=== PATIENT | female | born 1995 | race Caucasian/White ===

== ENCOUNTER 2016-11-20 19:47 | Emergency (ER) | payer BC ==
[2016-11-20 20:33] VITALS: BP 120/62
--- NOTE | 2016-11-20 20:39 | UC ---
Throat Pain/Nasal Steve HPI - HPI Summary HPI Summary: This is an otherwise healthy 21 yo female with c/o ST. Symptoms have been persistent for ~3d. She reports some cough, fatigue and body aches. She has felt feverish, but no documented fever. No associated n/v/d. Denies close sick contacts. - History of Current Complaint Chief Complaint: UCGeneralIllness Stated Complaint: SORE THROAT,FEVER Hx Last Menstrual Period: 11/13/16 - Allergies/Home Medications Allergies/Adverse Reactions: Allergies Allergy/AdvReac Type Severity Reaction Status Date / Time Sulfamethoxazole Allergy Hives Verified 11/20/16 20:02 w/Trimethoprim [From Bactrim] Home Medications: Home Medications Acetaminophen TAB* [Tylenol TAB*] 650 mg PO Q4H PRN 11/20/16 [History Confirmed 11/20/16] Ibuprofen TAB* [Advil TAB*] 400 mg PO Q6H PRN 11/20/16 [History Confirmed ] PMH/Surg Hx/FS Hx/Imm Hx - Surgical History Surgical History: Yes Surgery Procedure, Year, and Place: Left Ankle Surgery. Right Foot Surgery. T& A - Family History Known Family History: Positive: Cardiac Disease, Hypertension, Diabetes - Social History Alcohol Use: None Substance Use Type: None Smoking Status (MU): Never Smoked Tobacco Have You Smoked in the Last Year: No - Immunization History Most Recent Influenza Vaccination: [id number] Vaccination Up to Date: Yes Review of Systems Constitutional: Fever, Chills, Fatigue Skin: Negative Eyes: Negative ENT: Negative Respiratory: Negative Cardiovascular: Negative Gastrointestinal: Negative Genitourinary: Negative Motor: Negative Neurovascular: Negative Musculoskeletal: Negative Neurological: Negative Psychological: Negative All Other Systems Reviewed And Are Negative: Yes Physical Exam Triage Information Reviewed: Yes Vital Signs: Initial Vital Signs Temp 99.2 F 11/20/16 20:04 Pulse 77 11/20/16 20:04 Resp 16 11/20/16 20:04 BP 120/62 11/20/16 20:04 Pulse Ox 100 11/20/16 20:04 Vital Signs Reviewed: Yes ENT Exam: Normal ENT: Positive: Normal ENT inspection Neck: Positive: Enlarged Nodes @ - cervical, mild Respiratory: Positive: Chest non-tender, Lungs clear, Normal breath sounds Cardiovascular: Positive: RRR, No Murmur Abdomen Description: Positive: Nontender Diagnostics - Laboratory Diagnostic Studies Completed/Ordered: Rapid strep - neg Throat Pain/Nasal Course/Dx - Course Course Of Treatment: This is an otherwise healthy 21 yo female with a 3d h/o fever, chills, ST and HERNANDEZ. Her rapid strep is neg and exam benign. This likely represents a viral syndrome and recommended symptomatic care. - Differential Dx/Diagnosis Differential Diagnosis/HQI/PQRI: Laryngitis, Pharyngitis, Sinusitis Provider Diagnoses: 1. Viral pharyngitis Discharge - Discharge Plan Condition: Stable Disposition: HOME Patient Education Materials: Viral Syndrome (ED) Forms: *Work Release Referrals: Cammie MEEKS,Rama [Medical Doctor] - Additional Instructions: Activity: As tolerated Instructions: 1. Take ibuprofen for pain/swelling (600-800 mg three times daily) 2. Get plenty of rest
== END 2016-11-20 20:41 | disposition home or self-care (01) ==
LOC: UCCORT 19:47
DX: J02.8 Acute pharyngitis due to other specified organisms (principal); Z88.1 Allergy status to other antibiotic agents
CPT/HCPCS: 87651; 99211; G0463

== ENCOUNTER 2017-05-23 11:42 | Emergency (ER) | payer BC ==
[2017-05-23 12:02] VITALS: BP 118/67
--- NOTE | 2017-05-23 12:38 | RAD ---
Indication: Hemoptysis and cough. 2 views of the chest including dual energy PA views demonstrate no mediastinal shift. Heart is of normal size and configuration. Lung white are clear. When compared to previous exam of October 16, 2014 no significant change is noted. IMPRESSION: No active cardiopulmonary disease is noted.
--- NOTE | 2017-05-23 12:43 | UC ---
Respiratory Complaint HPI - HPI Summary HPI Summary: Pt c/o productive cough, that is occasional blood streaked with small amount of bright red blood,in sputum X 1 week. - History of Current Complaint Chief Complaint: UCGeneralIllness Stated Complaint: COUGH CONGESTION Time Seen by Provider: 05/23/17 12:06 Hx Obtained From: Patient Hx Last Menstrual Period: 05/16/17 ?: No Onset/Duration: Gradual Onset, Lasting Weeks - 1, Still Present Timing: Constant Severity Initially: Mild Severity Currently: Mild Character: Cough: Productive Aggravating Factors: Deep Breaths, Recumbent Position Alleviating Factors: Nothing Associated Signs And Symptoms: Positive: Hemoptysis, Nasal Congestion - Risk Factors Pulmonary Embolism Risk Factors: Oral Contraceptives - Allergies/Home Medications Allergies/Adverse Reactions: Allergies Allergy/AdvReac Type Severity Reaction Status Date / Time Sulfamethoxazole Allergy Hives Verified 05/23/17 12:02 w/Trimethoprim [From Bactrim] PMH/Surg Hx/FS Hx/Imm Hx Previously Healthy: Yes - Surgical History Surgical History: Yes Surgery Procedure, Year, and Place: Left Ankle Surgery. Right Foot Surgery. T& A. ovarian cyst removed - Family History Known Family History: Positive: Cardiac Disease, Hypertension, Diabetes - Social History Occupation: Student Lives: Dormitory/Roommates Alcohol Use: None Substance Use Type: None Smoking Status (MU): Never Smoked Tobacco Have You Smoked in the Last Year: No - Immunization History Most Recent Influenza Vaccination: current 2016/2017 Vaccination Up to Date: Yes Review of Systems Constitutional: Negative Skin: Negative Eyes: Negative Respiratory: Cough Cardiovascular: Negative Gastrointestinal: Negative Genitourinary: Negative Motor: Negative Neurovascular: Negative Musculoskeletal: Negative Neurological: Negative Psychological: Negative Is Patient Immunocompromised?: No All Other Systems Reviewed And Are Negative: Yes Physical Exam Triage Information Reviewed: Yes Appearance: Well-Appearing Vital Signs: Initial Vital Signs Temp 98.1 F 05/23/17 11:57 Pulse 83 05/23/17 11:57 Resp 18 05/23/17 11:57 BP 118/67 05/23/17 11:57 Pulse Ox 100 05/23/17 11:57 Vital Signs Reviewed: Yes Eye Exam: Normal ENT Exam: Normal Dental Exam: Normal Neck exam: Normal Respiratory Exam: Normal Cardiovascular Exam: Normal Musculoskeletal Exam: Normal Neurological Exam: Normal Psychological Exam: Normal Skin Exam: Normal UC Diagnostic Evaluation - Laboratory O2 Sat by Pulse Oximetry: 100 Respiratory Course/Dx - Differential Dx/Diagnosis Differential Diagnosis/HQI/PQRI: Bronchitis, Pulmonary Embolism, Other - pneumonia Provider Diagnoses: bronchitis Discharge - Discharge Plan Condition: Stable Disposition: HOME Prescriptions: Azithromycin TAB* [Zithromax TAB (Z-GISELLE) 250 mg #6 tabs] 2 tab PO .TODAY, THEN 1 DAILY #1 giselle Benzonatate CAP* [Tessalon 100 MG CAP*] 100 mg PO Q8H PRN #21 cap PRN Reason: Cough predniSONE TAB* [Deltasone TAB*] 30 mg PO DAILY #12 tab Patient Education Materials: Acute Bronchitis (ED) Referrals: No Primary Care Phys,NOPCP [Primary Care Provider] - If Needed
== END 2017-05-23 12:53 | disposition home or self-care (01) ==
LOC: UCCORT 11:42
DX: J40 Bronchitis, not specified as acute or chronic (principal); Z88.2 Allergy status to sulfonamides
CPT/HCPCS: 71046; 99212; G0463

== ENCOUNTER 2018-12-25 13:35 | Emergency (ER) | payer BC ==
[2018-12-25 14:03] VITALS: BP 111/58
--- NOTE | 2018-12-25 14:10 | UC ---
Ear Complaint HPI - HPI Summary HPI Summary: 23-year-old female with a right earache. She has been swimming recently. - History of Current Complaint Chief Complaint: UCEar Stated Complaint: RIGHT EAR Time Seen by Provider: 12/25/18 13:56 Hx Obtained From: Patient Hx Last Menstrual Period: 05/16/17 ?: No Onset/Duration: Gradual Onset Severity Initially: Mild Severity Currently: Moderate Pain Intensity: 6 Aggravating Factors: Nothing Alleviating Factors: Nothing - Allergies/Home Medications Allergies/Adverse Reactions: Allergies Allergy/AdvReac Type Severity Reaction Status Date / Time sulfamethoxazole Allergy Hives Verified 12/25/18 14:03 [From Bactrim] trimethoprim [From Bactrim] Allergy Hives Verified 12/25/18 14:03 Home Medications: Home Medications Sertraline* [Zoloft*] 50 mg PO DAILY 12/25/18 [History Confirmed 12/25/18] PMH/Surg Hx/FS Hx/Imm Hx Previously Healthy: Yes - Surgical History Surgical History: Yes Surgery Procedure, Year, and Place: Left Ankle Surgery. Right Foot Surgery. T& A. ovarian cyst removed - Family History Known Family History: Positive: Cardiac Disease, Hypertension, Diabetes - Social History Alcohol Use: None Substance Use Type: None Smoking Status (MU): Never Smoked Tobacco Have You Smoked in the Last Year: No - Immunization History Most Recent Influenza Vaccination: current 2016/2017 Vaccination Up to Date: Yes Review of Systems All Other Systems Reviewed And Are Negative: Yes ENT: Positive: Ear Ache Is Patient Immunocompromised?: No Physical Exam Triage Information Reviewed: Yes Appearance: Well-Appearing, No Pain Distress, Well-Nourished Vital Signs: Initial Vital Signs Temp 98.3 F 12/25/18 13:58 Pulse 78 12/25/18 13:58 Resp 18 12/25/18 13:58 BP 111/58 12/25/18 13:58 Pulse Ox 100 12/25/18 13:58 Vital Signs Reviewed: Yes Eyes: Positive: Conjunctiva Clear ENT: Positive: Pharynx normal, TM red - Right tragus is tender on palpation, ear is not tender with manipulation, ear canal is erythematous mildly swollen with yellowish green discharge in the canal I'm unable to visualize tympanic membrane. Left tympanic [place] pearly-waters with good land p[place] and light reflex., Uvula midline Neck: Positive: Supple, Nontender, No Lymphadenopathy Respiratory: Positive: Lungs clear, Normal breath sounds, No respiratory distress, No accessory muscle use Cardiovascular: Positive: RRR, No Murmur, Pulses Normal, Brisk Capillary Refill Musculoskeletal Exam: Normal Neurological Exam: Normal Psychological Exam: Normal Skin Exam: Normal Ear Complaint Course/Dx - Course Course Of Treatment: Patient is comfortable here. I'm going to treated for an otitis externa as well as an otitis media on the right side. - Differential Dx/Diagnosis Provider Diagnosis: Right otitis externa, Right otitis media Discharge - Sign-Out/Discharge Documenting (check all that apply): Patient Departure All imaging exams completed and their final reports reviewed: No Studies - Discharge Plan Condition: Fair Disposition: HOME Prescriptions: Amoxicillin PO (*) [Amoxicillin 875 MG (*)] 875 mg PO BID 10 Days #20 tab Neomyc/Polym/HC 1% OTIC SUSP* [Cortisporin Otic Susp 1%*] 4 drop RIGHT EAR QID # 1 btl Patient Education Materials: Ear Infection (ED), Otitis Externa (DC) Referrals: Joy Saxena PA [Primary Care Provider] - Additional Instructions: Keep ear ears clean and dry, no swimming over the next week, Tylenol or Motrin for pain as directed. Follow-up with your primary care provider if no improvement in 3 or 4 days. - Billing Disposition and Condition Condition: FAIR Disposition: Home
== END 2018-12-25 14:17 | disposition home or self-care (01) ==
LOC: UCCORT 13:35
DX: H60.91 Unspecified otitis externa, right ear (principal); H66.91 Otitis media, unspecified, right ear; Z88.2 Allergy status to sulfonamides
CPT/HCPCS: 99212; G0463

== ENCOUNTER 2019-02-28 18:40 | Emergency (ER) | payer BC ==
[2019-02-28 18:58] VITALS: BP 115/66
[2019-02-28] MEDS ORDERED: Lidocaine 1% MPF* 2 ML VIAL INJ ONE (19:16)
--- NOTE | 2019-02-28 19:17 | UC ---
Skin Complaint HPI - HPI Summary HPI Summary: Laceration on nose about an hour ago. Dogs were wrestling, not sure if a tooth or a toe nail got her. Washed with hot water and bled for awhile, just stopped bleeding. Dogs up to date on rabies. - History of Current Complaint Chief Complaint: UCWounds Time Seen by Provider: 02/28/19 19:07 Stated Complaint: LACERATION NOSE Hx Last Menstrual Period: 05/16/17 Pain Intensity: 1 - Allergy/Home Medications Allergies/Adverse Reactions: Allergies Allergy/AdvReac Type Severity Reaction Status Date / Time sulfamethoxazole Allergy Hives Verified 02/28/19 18:58 [From Bactrim] trimethoprim [From Bactrim] Allergy Hives Verified 02/28/19 18:58 PMH/Surg Hx/FS Hx/Imm Hx - Surgical History Surgical History: Yes Surgery Procedure, Year, and Place: Left Ankle Surgery. Right Foot Surgery. T& A. ovarian cyst removed - Family History Known Family History: Positive: Cardiac Disease, Hypertension, Diabetes - Social History Alcohol Use: Occasionally Substance Use Type: None Smoking Status (MU): Never Smoked Tobacco Have You Smoked in the Last Year: No - Immunization History Most Recent Influenza Vaccination: current 2016/2017 Most Recent Tetanus Shot: Pt ivan she is up to date Vaccination Up to Date: Yes Physical Exam Vital Signs: Initial Vital Signs Temp 99.2 F 02/28/19 18:53 Pulse 78 02/28/19 18:53 Resp 16 02/28/19 18:53 BP 115/66 02/28/19 18:53 Pulse Ox 100 02/28/19 18:53 Discharge ED - Discharge Plan Referrals: Joy Saxena PA [Primary Care Provider] -
[2019-02-28] MEDS ORDERED: Amoxicillin/Clavulanate TAB* 875 MG PO ONE (19:21)
--- NOTE | 2019-02-28 19:21 | UC ---
Laceration HPI - HPI Summary HPI Summary: Laceration on nose about an hour ago. Dogs were wrestling, not sure if a tooth or a toe nail got her. Washed with hot water and bled for awhile, just stopped bleeding. Dogs up to date on rabies. she is UTD on tetanus - History Of Current Complaint Chief Complaint: UCWounds Stated Complaint: LACERATION NOSE Time Seen by Provider: 02/28/19 19:07 Hx Obtained From: Patient Hx Last Menstrual Period: 05/16/17 Laceration Location: Face Mechanism Of Injury: Sharp Trauma Onset/Duration: Sudden Onset, Lasting Hours Severity: Mild Pain Intensity: 1 - Allergies/Home Medications Allergies/Adverse Reactions: Allergies Allergy/AdvReac Type Severity Reaction Status Date / Time sulfamethoxazole Allergy Hives Verified 02/28/19 18:58 [From Bactrim] trimethoprim [From Bactrim] Allergy Hives Verified 02/28/19 18:58 PMH/Surg Hx/FS Hx/Imm Hx Previously Healthy: Yes - Surgical History Surgical History: Yes Surgery Procedure, Year, and Place: Left Ankle Surgery. Right Foot Surgery. T& A. ovarian cyst removed - Family History Known Family History: Positive: Cardiac Disease, Hypertension, Diabetes - Social History Alcohol Use: Occasionally Substance Use Type: None Smoking Status (MU): Never Smoked Tobacco Have You Smoked in the Last Year: No - Immunization History Most Recent Influenza Vaccination: current 2016/2017 Most Recent Tetanus Shot: Pt beleives she is up to date Vaccination Up to Date: Yes Review of Systems All Other Systems Reviewed And Are Negative: Yes Skin: Positive: Other - laceration to right nare and lower cartilage Is Patient Immunocompromised?: No Physical Exam Triage Information Reviewed: Yes Appearance: Well-Appearing, Well-Nourished, Pain Distress Vital Signs: Initial Vital Signs Temp 99.2 F 02/28/19 18:53 Pulse 78 02/28/19 18:53 Resp 16 02/28/19 18:53 BP 115/66 02/28/19 18:53 Pulse Ox 100 02/28/19 18:53 Vital Signs Reviewed: Yes Eye Exam: Normal ENT Exam: Normal Dental Exam: Normal Neck exam: Normal Respiratory Exam: Normal Cardiovascular Exam: Normal Abdominal Exam: Normal Bowel Sounds: Positive: Present Musculoskeletal Exam: Normal Neurological Exam: Normal Psychological Exam: Normal Skin: Positive: Other - full thickness laceration to the skin and cartilage of the right nare Laceration Course/Dx - Course/Dx Course Of Treatment: hx obtained, exam performed ,meds reviewed, discussed with Dr jordan who will perform the laceration repair. treated with antibiotics for prevention of infection - Differential Dx - Laceration/Wound Differental Diagnoses: Laceration - Diagnosis Provider Diagnosis: Laceration of nose, complex Discharge ED - Sign-Out/Discharge Documenting (check all that apply): Patient Departure All imaging exams completed and their final reports reviewed: No Studies - Discharge Plan Condition: Stable Disposition: HOME Prescriptions: Amoxicillin/Clavulanate TAB* [Augmentin TAB 875*] 875 mg PO BID #19 tab Patient Education Materials: Laceration (DC) Referrals: Joy Saxena PA [Primary Care Provider] - Additional Instructions: 1. return in 4-5 days to have the sutures removed. 2. Take the medication as prescribed. - Billing Disposition and Condition Condition: STABLE Disposition: Home
--- NOTE | 2019-02-28 19:56 | UC ---
- Progress Note Progress Note: Faith Martinez was prepped and draped in the usual fashion. She was anesthetized with almost 2 cc's of 1% lidocaine. The wound was cleansed with hibiclens and closed with #8 6.0 Nylon simple interrupted sutures. She tolerated it well and it was dressed with antibiotic ointment. The wound edges were sharp and approximated well. Course/Dx - Diagnoses Provider Diagnoses: Laceration of nose, complex Discharge ED - Sign-Out/Discharge Documenting (check all that apply): Patient Departure All imaging exams completed and their final reports reviewed: No Studies - Discharge Plan Condition: Stable Disposition: HOME Prescriptions: Amoxicillin/Clavulanate TAB* [Augmentin TAB 875*] 875 mg PO BID #19 tab Referrals: Joy Saxena PA [Primary Care Provider] - - Billing Disposition and Condition Condition: STABLE Disposition: Home
== END 2019-02-28 20:07 | disposition home or self-care (01) ==
LOC: UCCORT 18:40
DX: S01.21XA Laceration without foreign body of nose, initial encounter (principal); Z88.2 Allergy status to sulfonamides; X58.XXXA Exposure to other specified factors, initial encounter; Y92.9 Unspecified place or not applicable
CPT/HCPCS: 12011; 99212; A9270-GY; G0463

== ENCOUNTER 2019-03-05 16:32 | Emergency (ER) | payer BC ==
[2019-03-05 17:10] VITALS: BP 113/68
--- NOTE | 2019-03-05 17:10 | UC ---
HPI Wound/Suture Re-check - HPI Summary HPI Summary: 23 y/o female presents to the urgent care requesting suture removal from her nose. Pt states sutures were placed here on 05/31/2018 s/p her dog bit her nose accidentally. Pt states wound has healed well and she is happy in how her wound has improved. Pt denies pain, fever, SOB, chest pain, abdominal pain, N/V/ d. - History Of Current Complaint Stated Complaint: REMOVAL OF STITCHES Time Seen by Provider: 03/05/19 17:09 Hx Obtained From: Patient Hx Last Menstrual Period: 05/16/17 Onset/Duration: Sudden Onset, Resolved Severity: Mild Pain Intensity: 0 Pain Scale Used: 0-10 Numeric Surgery Date: 02/28/19 - nose laceration repair - Allergies/Home Medications Allergies/Adverse Reactions: Allergies Allergy/AdvReac Type Severity Reaction Status Date / Time sulfamethoxazole Allergy Hives Verified 03/05/19 17:10 [From Bactrim] trimethoprim [From Bactrim] Allergy Hives Verified 03/05/19 17:10 PMH/Surg Hx/FS Hx/Imm Hx Previously Healthy: Yes - Pt denies PMHX - Surgical History Surgical History: Yes Surgery Procedure, Year, and Place: Left Ankle Surgery. Right Foot Surgery. T& A. ovarian cyst removed - Family History Known Family History: Positive: Cardiac Disease, Hypertension, Diabetes - Social History Occupation: Employed Full-time Lives: With Family Alcohol Use: Occasionally Substance Use Type: None Smoking Status (MU): Never Smoked Tobacco Have You Smoked in the Last Year: No - Immunization History Most Recent Influenza Vaccination: current 2016/2017 Most Recent Tetanus Shot: Pt ivan she is up to date Vaccination Up to Date: Yes Review of Systems All Other Systems Reviewed And Are Negative: Yes Constitutional: Positive: Negative Skin: Positive: Other - wound healing well s/p laceration repair Eyes: Positive: Negative ENT: Positive: Negative Respiratory: Positive: Negative Cardiovascular: Positive: Negative Gastrointestinal: Positive: Negative Motor: Positive: Negative Neurovascular: Positive: Negative Musculoskeletal: Positive: Negative Neurological: Positive: Negative Psychological: Positive: Negative Is Patient Immunocompromised?: No Physical Exam Triage Information Reviewed: Yes Appearance: Well-Appearing, No Pain Distress Vital Signs Reviewed: Yes Eye Exam: Normal ENT Exam: Normal Dental Exam: Normal Neck exam: Normal Respiratory Exam: Normal Cardiovascular Exam: Normal Abdominal Exam: Normal Bowel Sounds: Positive: Present Musculoskeletal Exam: Normal Neurological Exam: Normal Psychological Exam: Normal Skin: Positive: Other - Wound healing well on the right side and tip of nose with crusting and moderate granulation over, non tender to palpation, [address] 8 sutures removed w/o any difficulty. Course/Dx - Course Course Of Treatment: 23 y/o female presents to the urgent care requesting suture removal from her nose. Pt states sutures were placed here on 05/31/2018 s/p her dog bit her nose accidentally. Pt states wound has healed well and she is happy in how her wound has improved. Pt denies pain, fever, SOB, chest pain, abdominal pain, N/V/ d. Hx obtained. Wound healing well with crusting and moderate granulation over the Rt side and tip of nose, non tender to palpation, [address] 8 sutures removed w/o any difficulty. Pt tolerated well procedure. wound cleaned with sterile water and bacitracin oint applied over. Pt advised to continue taking Augmentin PO as directed and apply Bacitracin oint and if redness, pain or fever develops to return to the urgent care or f/u with PCP for further treatment. D/C instructions explained. Pt understood and agreed with plan of care - Differential Dx - Laceration/Wound Differential Diagnoses: Cellulitis, Healing Wound, Suture Removal - Diagnosis Provider Diagnosis: Visit for suture removal Discharge ED - Sign-Out/Discharge Documenting (check all that apply): Patient Departure - D/C home All imaging exams completed and their final reports reviewed: No Studies - Discharge Plan Condition: Stable Disposition: HOME Prescriptions: Bacitracin OINTMENT* 1 applic TOPICAL BID #1 tube Patient Education Materials: Acute Wound Care (ED) Referrals: Joy Saxena PA [Primary Care Provider] - Additional Instructions: 1-Keep taking Augmenting PO as directed. Please apply Bacitracin topical antibiotic over the wound. Keep wound clean and dry 2-Take Ibuprofen or Tylenol PO q6-8hrs prn for pain or swelling. Avoid sun exposure 4- If you develop fever or redness around your finger despite the antibiotic please return to the Urgent care or your PCP for further management - Billing Disposition and Condition Condition: STABLE Disposition: Home
== END 2019-03-05 17:32 | disposition home or self-care (01) ==
LOC: UCCORT 16:32
DX: T14.8XXD Other injury of unspecified body region, subsequent encounter (principal); X58.XXXD Exposure to other specified factors, subsequent encounter

== ENCOUNTER 2019-04-17 18:14 | Emergency (ER) | payer BC ==
--- OUTSIDE RECORDS SUMMARY | 2019-04-17 18:34 | XMS REPORT | Continuity of Care Document ---
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 Medicine Problems Active Problems Provider Date Anxiety MARANDA Anaya Onset: 09/30/2018 Posttraumatic stress disorder MARANDA Anaya Onset: 09/30/2018 Social History Type Date Description Comments Sex Unknown ETOH Use Denies alcohol use Tobacco Use Start: Unknown Patient has never smoked Smoking Status Reviewed: 04/09/19 Patient has never smoked Exercise Type/Frequency Walks daily Running Allergies, Adverse Reactions, Alerts Active Allergies Reaction Severity Comments Date Codeine Nausea 08/27/2018 Bactrim Itching 08/27/2018 Sulfamethoxazole Hives 08/27/2018 Trimethoprim Sulfate 08/27/2018 Medications Active Medications SIG Qnty Indications Ordering Provider Date Seasonique take daily as Trupti Garcia, directed [employer] 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 0.15-0.03&0.01mg Tablets Vitamin C 1 by mouth every Unknown 500mg day OTC Capsules Vitamin D 1 by mouth every Unknown 2000Unit day - OTC Tablets Immunizations CPT Code Status Date Vaccine Reaction Lot # [id number] Given 04/09/2019 Influ Virus Vaccine, risks and benefits Flu>3yr/ Quadrivalent, Split discussed [id number] Virus, [place] [address] Given 06/06/2016 Influenza Virus Vaccine, Quadrivalent, Split, Preservative Free 87957 Given 11/02/2014 Meningococcal Immunization 31309 Given 09/02/2013 Hepatitis A Vaccine Pediatric/Adolescent Dosage 2 Dose Schedule 56520 Given 01/02/2008 Pneumococcal Conjugate Vaccine 13 Valent For Intramuscular Use 94266 Given 11/28/2007 Varicella (Chicken Pox) Immunization 38183 Given 03/11/2007 Gardasil (HPV) 83157 Given 11/08/2006 Gardasil (HPV) 16340 Given 09/06/2006 Gardasil (HPV) 90910 Given 08/03/2006 Tdap - Tetanus/Diptheria/Acellu lar Pertussis 98594 Given 08/22/2000 IPV/Poliomyelitis Immunization 51002 Given 08/22/2000 DTaP Vaccine Younger Than 7 28420 Given 07/11/1999 Measles Mumps And Rubella MMR 92621 Given 02/05/1997 Hib Hboc Conjugate 4 Dose Schedule 39129 Given 02/05/1997 DTaP Vaccine Younger Than 7 07851 Given 10/07/1996 Varicella (Chicken Pox) Immunization 22939 Given 07/18/1996 Measles Mumps And Rubella MMR 45475 Given 01/10/1996 Hep B Pediatric/Adolescent 67757 Given 01/10/1996 IPV/Poliomyelitis Immunization 19824 Given 01/10/1996 DTaP Vaccine Younger Than 7 27523 Given 01/10/1996 Hib Hboc Conjugate 4 Dose Schedule 38590 Given 1995 Hep B Pediatric/Adolescent 23957 Given 1995 IPV/Poliomyelitis Immunization 14420 Given 1995 DTaP Vaccine Younger Than 7 77773 Given 1995 Hib Hboc Conjugate 4 Dose Schedule 65160 Given 1995 Hep B Pediatric/Adolescent 05079 Given 1995 IPV/Poliomyelitis Immunization 92993 Given 1995 DTaP Vaccine Younger Than 7 27083 Given 1995 Hib Hboc Conjugate 4 Dose Schedule Vital Signs Date Vital Result Comment 04/09/2019 2:33pm Height 62.5 inches 5'2.50" Weight 160.19 lb Heart Rate 83 /min BP Systolic 104 mmHg BP Diastolic 68 mmHg Body Temperature 98.9 F O2 % BldC Oximetry 98 % BMI (Body Mass Index) 28.8 kg/m2 Results Description No Information Available Procedures Description No Information Available Medical Devices Description No Information Available Encounters Description No Information Available Assessments Date Code Description Provider 04/09/2019 F41.9 Anxiety disorder, unspecified MARANDA Anaya 04/09/2019 Z23 Encounter for immunization MARANDA Anaya Plan of Treatment 04/09/2019 - Joy Saxena, PAF41.9 Anxiety disorder, unspecifiedComments: Situational.Z23 Encounter for immunizationComments:Seasonal flu vaccine administered today. Functional Status Description No Information Available Mental Status Description No Information Available Referrals Description No Information Available
[2019-04-17 18:42] VITALS: BP 115/70
--- NOTE | 2019-04-17 19:01 | UC ---
Abdominal Pain Female HPI - HPI Summary HPI Summary: Patient is a 23yo female presenting with c/o continuous abdominal pain and back pain x5 days. Patient states that she was seen in ED last sunday for same symptoms. 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 Patient states she is here now "for advice on anything else she can do for constipation." Patient states she was "totally constipated for days but the last two days she was able to pass very small stools." Notes almost no relief from these stool, stating she "still feels bloated and has pain." Patient notes decreased appetite but still eating; had mac and cheese today. No vomiting but notes nausea at times. Denies fever and chills. Denies hematachezia. Denies h/o constipation and other GI disorders. - History of Current Complaint Chief Complaint: UCGeneralIllness Stated Complaint: STOMACH/BACK PAIN, BLOATING Hx Obtained From: Patient Hx Last Menstrual Period: 04/02/19 Onset/Duration: Gradual Onset, Lasting Days Timing: Constant Severity Initially: Moderate Severity Currently: Moderate Pain Intensity: 5 Pain Scale Used: 0-10 Numeric Allergies/Adverse Reactions: Allergies Allergy/AdvReac Type Severity Reaction Status Date / Time sulfamethoxazole Allergy Hives Verified 04/17/19 18:39 [From Bactrim] trimethoprim [From Bactrim] Allergy Hives Verified 04/17/19 18:39 Home Medications: Home Medications Docusate Sodium [Stool Softener] 100 mg PO BID 04/17/19 [History Confirmed 04/17] PMH/Surg Hx/FS Hx/Imm Hx Previously Healthy: Yes - Surgical History Surgical History: Yes Surgery Procedure, Year, and Place: Left Ankle Surgery. Right Foot Surgery. T& A. ovarian cyst removed - Family History Known Family History: Positive: Cardiac Disease, Hypertension, Diabetes - Social History Alcohol Use: Occasionally Substance Use Type: None Smoking Status (MU): Never Smoked Tobacco Have You Smoked in the Last Year: No - Immunization History Most Recent Influenza Vaccination: current 2016/2017 Most Recent Tetanus Shot: Pt beleives she is up to date Vaccination Up to Date: Yes Review of Systems All Other Systems Reviewed And Are Negative: Yes Constitutional: Positive: Negative Respiratory: Positive: Negative Cardiovascular: Positive: Negative Gastrointestinal: Positive: Abdominal Pain - diffuse cramping abdominal pain, Nausea - intermittent, Other - "constipation". Negative: Vomiting, Diarrhea Genitourinary: Positive: Negative Musculoskeletal: Positive: Negative Physical Exam Triage Information Reviewed: Yes Appearance: Well-Appearing, No Pain Distress, Well-Nourished Vital Signs: Initial Vital Signs Temp 99.1 F 04/17/19 18:36 Pulse 102 04/17/19 18:36 Resp 14 04/17/19 18:36 BP 115/70 04/17/19 18:36 Pulse Ox 99 04/17/19 18:36 Vital Signs Reviewed: Yes Eyes: Positive: Conjunctiva Clear ENT: Positive: Hearing grossly normal Neck: Positive: Supple Respiratory Exam: Normal Respiratory: Positive: Lungs clear, Normal breath sounds, No respiratory distress Cardiovascular Exam: Normal Cardiovascular: Positive: RRR. Negative: Tachycardia Abdominal Exam: Normal Abdomen Description: Positive: Nontender, Soft. Negative: CVA Tenderness (R), CVA Tenderness (L), Distended, Guarding, McBurney's Point Tenderness Bowel Sounds: Positive: Present - BS x4 Musculoskeletal Exam: Normal - no tenderness to palpation of lower back Musculoskeletal: Positive: ROM Intact Neurological: Positive: Alert Psychological: Positive: Age Appropriate Behavior Skin Exam: Normal - no erythema or ecchymosis Abd Pain Female Course/Dx - Course Course Of Treatment: Patient VS and PE findings normal. Instructed patient to take mag citrate and stool softeners. Instructed to follow up if constipation does not resolve within a few days. Instructed to go to ED with any new or worsening symptoms. Patient voiced understanding and agreed with treatment plan. - Differential Dx/Diagnosis Provider Diagnosis: Constipation Discharge ED - Sign-Out/Discharge Documenting (check all that apply): Patient Departure All imaging exams completed and their final reports reviewed: No Studies - Discharge Plan Condition: Stable Disposition: HOME Patient Education Materials: Constipation (ED), High Fiber Diet (ED) Referrals: Joy Saxena PA [Primary Care Provider] - If Needed Additional Instructions: It is recommended that you take over the counter magnesium citrate and colace as directed to help alleviate your symptoms. You may also try an over the counter fleet enema. Drink plenty of fluids and maintain a high fiber diet. Follow up with your PCP if symptoms persist. Go to the emergency room if you experience new or worsening symptoms. - Billing Disposition and Condition Condition: STABLE Disposition: Home - Attestation Statements Provider Attestation: I was available for consult. This patient was seen by the [facility]. The patient was not presented to, seen by, or examined by me. -Roxanna
== END 2019-04-17 19:10 | disposition home or self-care (01) ==
LOC: UCCORT 18:14
DX: K59.00 Constipation, unspecified (principal); Z88.2 Allergy status to sulfonamides; Z88.1 Allergy status to other antibiotic agents
CPT/HCPCS: 99211; G0463

== ENCOUNTER 2023-04-23 01:50 | Inpatient (IN) ==
[2023-04-23] MEDS ORDERED: Lidocaine 1% VIAL 10 MG/ML 30 ML VIAL INJ PRN (04:46)
[2023-04-23] MEDS ORDERED: Lactated Ringers 1000 ml BAG 1,000 ML IV ONE ×2 (04:46→06:18)
[2023-04-23] MEDS ORDERED: OBEPIDURAL (200 ML) 200 ML EPIDURAL ONE (05:26)
[2023-04-23] MEDS ORDERED: Lidocaine 1.5% EPI 1:200,000 30 ML SDV ONE (05:26)
[2023-04-23] MEDS ORDERED: fentaNYL 100 mcg/2 ml 50 MCG/ML VIAL ONE (05:42)
[2023-04-23] MEDS ORDERED: Ondansetron 4 mg VIAL 2 MG/ML 2 ml VIAL IV PRN (05:48)
[2023-04-23 05:51] LABS: Urine Benzodiazepine Screen None Detected (None Detect); Urine Cannabinoids Screen None Detected (None Detect); Urine Opiates Screen None Detected (None Detect)
[2023-04-23 06:07] LABS: ABS Basophils 0.1 10^3/uL (0.0-0.1); ABS Eosinophils 0.2 10^3/uL (0.0-0.5); ABS Monocytes 0.6 10^3/uL (0.0-0.9); Eosinophil % 1.9 %; Hematocrit 35.8 % (35-45); Hemoglobin 12.1 g/dL (11.5-14.3); Lymphocyte % 18.4 %; Mean Corpuscular Hgb Conc 33.9 g/dL (31-36); Mean Corpuscular Volume 85.3 fL (80-97); Mean Platelet Volume 10.8 fL (7.5-11.2); Platelet Count 174 10^3/uL (150-450); Red Blood Count 4.19 10^6/uL (3.63-4.92); Red Cell Distribution Width 13.8 % (12-17); White Blood Count 10.9 10^3/uL (3.8-11.8)
[2023-04-23] MEDS ORDERED: Phenylephrine 40 mcg/mL 10mL (400mcg) SYRINGE IV PUSH PRN ×2 (06:18)
[2023-04-23] MEDS ORDERED: Sodium Citrate/Citric Acid LIQ 15 ML UDC PO PRN (06:18)
[2023-04-23] MEDS ORDERED: Lactated Ringers 1000 ml BAG 1,000 ML IV SCH ×2 (07:00→08:00)
[2023-04-23] MEDS ORDERED: OBEPIDURAL (200 ML) 200 ML EPIDURAL SCH (07:00)
[2023-04-23] MEDS ORDERED: Oxytocin in LR 20,000 MILLI.UNIT/1,000 ML BAG IV ONE (07:05)
[2023-04-23] MEDS ORDERED: Dibucaine 1% OINT 28.35 GM TUBE PR PRN (07:29)
[2023-04-23] MEDS ORDERED: Witch Hazel PAD JAR TOPICAL PRN (07:29)
[2023-04-23] MEDS ORDERED: Oxytocin in LR 20,000 MILLI.UNIT/1,000 ML BAG IV SCH (07:30)
[2023-04-23 10:05] LABS: Urine Appearance Clear; Urine Bilirubin Negative (Negative); Urine Blood Negative (Negative); Urine Color Yellow; Urine Glucose Negative (Negative); Urine Ketones Trace (Negative); Urine Nitrite Negative (Negative); Urine Protein Negative (Negative); Urine Specific Gravity 1.016 (1.002-1.030); Urine Urobilinogen Negative (Negative)
[2023-04-23] MEDS ORDERED: Lidocaine PATCH 5% PATCH TRANSDERM SCH (23:00)
[2023-04-24 07:50] LABS: ABS Eosinophils 0.1 10^3/uL (0.0-0.5); ABS Lymphocytes 1.4 10^3/uL (1.0-4.8); ABS Monocytes 0.7 10^3/uL (0.0-0.9); ABS Neutrophils 11.9 10^3/uL (1.5-7.6); Eosinophil % 0.8 %; Hemoglobin 11.2 g/dL (11.5-14.3); Lymphocyte % 10.2 %; Mean Corpuscular Hemoglobin 28.3 pg (27-33); Mean Corpuscular Hgb Conc 32.9 g/dL (31-36); Mean Corpuscular Volume 85.9 fL (80-97); Mean Platelet Volume 10.1 fL (7.5-11.2); Platelet Count 143 10^3/uL (150-450); Red Blood Count 3.96 10^6/uL (3.63-4.92); Red Cell Distribution Width 13.7 % (12-17); White Blood Count 14.2 10^3/uL (3.8-11.8)
[2023-04-24 08:39] VITALS: BP 126/73
== END 2023-04-24 15:00 | disposition home or self-care (01) | DRG 560 ==
LOC: MCHOBOUT 01:50 → MCHOB 04:42
PROVIDERS: ADMIT Midwife; ATTEND Midwife